=== PATIENT | male | born 1955 | race Caucasian/White ===

== ENCOUNTER 2020-06-27 07:51 | Day surgery (SDC) | payer OTHER ==
[~2020-06-27] VITALS: Ht 170.2 cm; Wt 109.1 kg
[~2020-06-27 07:51] MED LIST: EZETIMIBE10 MG PO; LEVOTHYROXINE100 MCG PO; LEVOTHYROXINE137 MCG PO; LISINOPRIL5 MG PO; MULTIVITAMINS1 EAC7 PO; PRILOSEC OTC20 MG PO
--- NOTE | 2020-06-27 09:57 | NUR ---
06/27/20 0957 Car[address] [place] 0954 PATIENT AWAKE ON ARRIVAL TO PACU. RESP EVEN AND UNLABORED, NC TURNED OFF, ROOM AIR SATS >94%. PATIENT DENIES PAIN OR NAUSEA. DENIES NEEDS AT THIS TIME.
--- NOTE | 2020-06-27 19:22 | OR ---
[facility] [address], [place] [address] Signed DATE OF OPERATION: 06/27/2020 SURGEON: Jory Cheatham MD PREOPERATIVE DIAGNOSES: 1. Family history of colon cancer (aunt). 2. Last colonoscopy 2015, hyperplastic polyp. POSTOPERATIVE DIAGNOSES: 1. Two probable hyperplastic polyps of rectosigmoid and 1 possible adenomatous polyp of the low rectum. PROCEDURE: Total colonoscopy to cecum with cold morcellation polypectomy x3. ANESTHESIA: Intravenous sedation, fentanyl 150 mcg and Versed 5 mg. INDICATION: This 65-year-old white man is a patient of Taryn Ortiz and well known to me from the past. He last underwent colonoscopy five years ago in 2016. He is also treated for gastroesophageal reflux, medically doing well with PPI medication. He has family history of colon cancer in an aunt. He has no associated rectal bleeding, diarrhea, or constipation. He did have hemorrhoidal changes on colonoscopy in 2016, but no polyp. He is admitted at this time to undergo colonoscopy as a surveillance that should say. He understands the risks of bleeding, infection, and perforation and wished to proceed. FINDINGS: The prep was excellent. Complete colonoscopy was undertaken of the cecum without question. He had very small hyperplastic appearing polyps of the rectosigmoid and one polyp of the low rectum probably adenomatous. All three were excised entirely. There were no other findings of concern. He did have some internal hemorrhoids as he appeared not symptomatic or problematic at this time. DESCRIPTION OF PROCEDURE: The patient was brought to the endoscopy suite and placed in lateral decubitus position, given intravenous sedation to the point of slurred speech and nystagmus. Digital rectal examination was normal. An Olympus video colonoscope was passed in the rectum and manipulated throughout the Electronically Signed By: JORY CHEATHAM MD 06/27/201921 PATIENT NAME: GHADA NAGY OPERATIVE REPORT DATE OF : 53 REPORT #: [id number] PHYSICIAN: JORY CHEATHAM MD PCP: NO PRIMARY CARE PHYSICIAN REPORT IS CONFIDENTIAL AND NOT TO BE RELEASED WITHOUT AUTHORIZATION [facility] [address], [place] [address] Signed colon ultimately intubating the cecum itself. The ileocecal valve and appendiceal orifice were normal. Scope was withdrawn from that point. Examination throughout showed no sign of abnormality into the rectosigmoid, where two small hyperplastic appearing polyps were noted. These are both excised with cold morcellation technique. Further withdrawal of scope allowed for retroflexed view, which showed a slightly larger somewhat flat adenomatous appearing polyp. This was excised with cold morcellation technique. The scope was straightened withdrawn. Internal hemorrhoidal changes were noted without sign of bleeding or thrombosis. The scope was removed. The patient was taken to the recovery room in good condition. CONCLUDING DIAGNOSIS: Polyps x3. PLAN: Recommend a repeat colonoscopy in 5 years sooner if clinically indicated. He will return to the ongoing care of Taryn Ortiz otherwise. MD JAGUAR Caraballo/JOS /[id number] cc: Taryn Ortiz Copies: ~ Electronically Signed By: JORY CHEATHAM MD 06/27/20 1922 PATIENT NAME: GHADA NAGY OPERATIVE REPORT DATE OF : 53 REPORT #: [id number] PHYSICIAN: JORY CHEATHAM MD PCP: NO PRIMARY CARE PHYSICIAN REPORT IS CONFIDENTIAL AND NOT TO BE RELEASED WITHOUT AUTHORIZATION
--- NOTE | 2020-06-30 14:02 | PATH ---
[facility] [address], [place] [address] Signed SPECIMEN(S): A RECTOSIGMOID POLYP SPECIMEN(S): B RECTAL POLYP SPECIMEN SOURCE: A. RECTOSIGMOID POLYP B. RECTAL POLYP CLINICAL HISTORY: Surveillance. Colon polyps/rectal. MICROSCOPIC DESCRIPTION: Histologic sections of all submitted blocks are examined by light microscopy. These findings, together with the gross examination, support the pathologic diagnosis. FINAL PATHOLOGIC DIAGNOSIS: A. Colon, rectosigmoid, polypectomy: - Hyperplastic polyp. B. Rectum, polypectomy: - Hyperplastic polyp. BRP:bg:C2NR GROSS DESCRIPTION: Two specimens are received in two containers, labeled "WJ." A. The specimen, labeled "WJ, rectosigmoid colon polyp," is received in formalin and consists of two malhotra soft tissue fragment(s) that measure 0.1-0.2 cm in greatest dimension. The specimen is entirely submitted in cassette (A1). B. The specimen, labeled "WJ, rectal polyp," is received in formalin and consists of three malhotra soft tissue fragment(s) that measure 0.1-0.2 cm in greatest dimension. The specimen is entirely submitted in cassette (B1). JS (under the direct supervision of a pathologist) The Gross Description was prepared using a voice recognition system. The report was reviewed for accuracy; however, sound-alike word errors, addition and/or deletions may occur. If there is any question about this report, please contact Client Services. PERFORMING LABORATORY: The technical component was performed by [facility], [address] [place] [id number] ([employer] Supervisor: Guillermina Gibson MD; CLIA# [id number]). Professional interpretation was performed by PATIENT NAME: GHADA NAGY PATHOLOGY DATE OF : 53 REPORT #: [id number] PHYSICIAN: [facility] PCP: NO PRIMARY CARE PHYSICIAN REPORT IS CONFIDENTIAL AND NOT TO BE RELEASED WITHOUT AUTHORIZATION [facility] [address] [place], [place] [address] Signed [facility], [address] [place], [place] [address] [place] [address] ([employer] Supervisor: Guillermina Gibson MD; CLIA# [id number]). Diagnostician: Balaji Espinoza MD Pathologist Electronically Signed 06/30/2020 Copies: ~ PATIENT NAME: GHADA NAGY PATHOLOGY DATE OF : 53 REPORT #: [id number] PHYSICIAN: [facility] PCP: NO PRIMARY CARE PHYSICIAN REPORT IS CONFIDENTIAL AND NOT TO BE RELEASED WITHOUT AUTHORIZATION
== END 2020-06-27 10:30 | disposition home or self-care (01) ==
LOC: DS 07:51 → OPS 07:51 → DS 09:30 → OPS 09:30
PROVIDERS: ATTEND Surgery
PROC: 0DBN8ZX Excision of Sigmoid Colon, Via Natural or Artificial Opening Endoscopic, Diagnostic (ICD-10-PCS; 2020-06-27)
PROC: 0DBP8ZX Excision of Rectum, Via Natural or Artificial Opening Endoscopic, Diagnostic (ICD-10-PCS; principal; 2020-06-27 09:30)
DX: Z12.11 Encounter for screening for malignant neoplasm of colon (principal); K63.5 Polyp of colon; K62.1 Rectal polyp; K64.8 Other hemorrhoids; D13.1 Benign neoplasm of stomach; K21.9 Gastro-esophageal reflux disease without esophagitis; E78.5 Hyperlipidemia, unspecified; I10 Essential (primary) hypertension; E03.9 Hypothyroidism, unspecified; Z87.19 Personal history of other diseases of the digestive system; Z88.0 Allergy status to penicillin; Z88.2 Allergy status to sulfonamides; Z88.8 Allergy status to other drugs, medicaments and biological substances; Z86.61 Personal history of infections of the central nervous system; Z80.0 Family history of malignant neoplasm of digestive organs
CPT/HCPCS: 99153; G0500; J2250; J3010; J7121